=== PATIENT | male | born 1965 | race Caucasian/White ===

== ENCOUNTER 2018-11-20 04:49 | Observation (INO) ==
[2018-11-20] MEDS ORDERED: 0.9 % SODIUM CHLORIDE 1,000 ML IV ONE (05:02)
--- NOTE | 2018-11-20 05:08 | Emergency Department Note ---
Abdominal Pain HPI - General Chief Complaint: Abdominal Pain Stated Complaint: Thinking having gallbladder attack Time Seen by Provider: 11/20/18 04:58 Source: patient Mode of arrival: ambulatory Limitations: no limitations - History of Present Illness HPI Narrative: 53-year-old male with known cholelithiasis and cholecystitis who is already seen Dr. Strong, general surgeon, for this on 11/12/2018 comes in for right upper quadrant pain that woke him up tonight. Rates pain is 7 out of 10. Hydrocodone did not help much. He was going to schedule with Dr. Strong to get his gallbladder taken out but had not done it yet - Related Data Home Medications Medication Instructions Recorded Confirmed esomeprazole magnesium 20 mg 20 mg PO QDAY PRN 02/19/18 11/12/18 tablet,delayed release Previous Rx's Medication Instructions Recorded methocarbamol 750 mg tablet 750 mg PO Q6H PRN #60 tab 09/19/17 atorvastatin 40 mg tablet 40 mg PO QDAY #90 tab 02/19/18 fluticasone propionate 50 1 spray INTRANASAL BID #16 g 02/19/18 mcg/actuation nasal spray,suspension ketoconazole 2 % shampoo 1 applic TOPICAL 3XW #120 ml 02/19/18 albuterol sulfate HFA 90 90 mcg INHALATION Q6H PRN #18 g 03/29/18 mcg/actuation aerosol inhaler tamsulosin 0.4 mg capsule 0.4 mg PO QDAY #90 cap 04/24/18 levofloxacin 750 mg tablet 750 mg PO QDAY #7 tab 05/31/18 losartan 100 mg tablet 100 mg PO QDAY #30 tab 05/31/18 mometasone-formoterol HFA 100 2 puff INHALATION BID #13 g 05/31/18 mcg-5 mcg/actuation aerosol inhaler prednisone 5 mg tablet See Rx Instructions PO QAM #45 tab 05/31/18 promethazine 6.25 mg-codeine 10 5 ml PO Q6H PRN #118 ml 05/31/18 mg/5 mL syrup tramadol 50 mg tablet 50 mg PO Q6H #120 tab 05/31/18 HYDROcodone/APAP 5/325MG [[place] 1 tab PO Q6HP PRN #15 tab 11/04/18 5-325Mg] Allergies Allergy/AdvReac Type Severity Reaction Status Date / Time lisinopril Allergy Unknown Congested Verified 11/12/18 08:32 Review of Systems All systems ED: reviewed and negative except as stated. Abdominal Pain PMH - Past Medical History Attestation: Yes: The following information was validated with the patient. [facility] Narrative: Family History (Last Reviewed 11/12/18 @ 08:35 by Sara Gómez CMA) Mother Depression Medical History (Last Reviewed 11/12/18 @ 08:35 by Sara Gómez CMA) Fracture, carpal bone (Acute) Chronic kidney disease, stage III (moderate) (Chronic) Hypertensive renal disease (Chronic) Diverticulosis of intestine (Chronic) Obesity (Chronic) Hyperkalemia (Chronic) Hypertension (Chronic) Chronic kidney disease, stage III (moderate) (Chronic) White coat hypertension (Chronic) Tinea versicolor (Chronic) Shoulder pain (Chronic) Lumbar disc disorder (Chronic) Insulin resistance syndrome (Chronic) Hyperlipidemia (Chronic) Hemochromatosis (Chronic) Diverticulitis (Chronic) Depression (Chronic) Nocturia associated with benign prostatic hypertrophy (Chronic) Asthma (Chronic) Anxiety disorder (Chronic) Allergic rhinitis (Chronic) Abnormal electrocardiogram (Chronic) Abdominal pain (Resolved) Aspiration pneumonia (Resolved) Hemoptysis (Resolved) Palpitations (Resolved) Skin lesion of left lower extremity (Resolved) Past Surgical History (Last Reviewed 11/12/18 @ 08:35 by Sara Gómez CMA) H/O colonoscopy (Chronic 07/28/15) History of cystoscopy (Chronic 10/01/15) Status post laparoscopic-assisted sigmoidectomy (Chronic 10/01/15) History of appendectomy (Resolved) History of inguinal hernia repair (Resolved) History of repair of left rotator cuff (Resolved) History of vasectomy (Resolved) Medical history: Reports: atrial fibrillation (Diverticulitis, asthma, BPH,), hypertension, other - Social History Smoking status: Former smoker Alcohol use: Reports: Occasionally Drug use: Reports: none Physical Exam Some distress secondary to pain. Normocephalic atraumatic. Conjunctive are clear sclerae nonicteric. No nasal discharge or congestion. Oropharynx pink and moist. Neck supple without lymphadenopathy or thyromegaly. Heart is regular rate and rhythm no murmur appreciated. Lungs are clear to auscultation bilaterally without wheezes rales rhonchi or respiratory distress. Abdomen is soft tender in the right upper quadrant with some guarding-Matta sign positive. Alert oriented Limitations: no limitations Course Vital Signs Temperature 97.0 F 11/20/18 04:49 Pulse Rate 83 11/20/18 04:49 Respiratory Rate 18 11/20/18 04:49 Blood Pressure 176/129 11/20/18 04:49 Pulse Oximetry (%) 100 11/20/18 04:49 Temperature 97.0 F 11/20/18 04:49 Pulse Rate 60 11/20/18 06:01 Respiratory Rate 18 11/20/18 04:49 Blood Pressure 146/99 11/20/18 06:01 Pulse Oximetry (%) 97 11/20/18 06:01 Abdominal Pain - MDM Narrative Medical decision making narrative: Reviewed Dr. Juan Strong's note from his clinic on 11/12/2018 - Lab Data Lab results reviewed: Yes I reviewed the patient's lab results. Result diagrams: 11/20/18 05:10 11/20/18 05:10 Lab Results 11/20/18 11/20/18 Range/Units 05:10 05:10 WBC 7.6 (4.5-11.0) K/mcL RBC 4.94 (4.50-5.90) M/mcL Hgb 14.8 (13.5-16.5) g/dL Hct 44.9 (41.0-55.0) % MCV 90.9 (80.0-100.0) fL MCH 30.0 (26.0-34.0) pg MCHC 33.0 (31.0-36.0) g/dL RDW 13.4 (11.5-14.5) % Plt Count 171 (140-440) K/mcL MPV 9.9 (7.4-10.4) fL Gran % 50.0 (38.0-78.0) % Lymph % (Auto) 37.5 (15.5-49.0) % [place] % (Auto) 9.4 (1.0-12.0) % Eos % (Auto) 2.6 (0.0-7.0) % Baso % (Auto) 0.5 (0.0-2.0) % Gran # 3.8 (1.8-8.0) K/mcL Lymph # (Auto) 2.9 (1.5-4.8) K/mcL [place] # (Auto) 0.7 (0.1-0.9) K/mcL Eos # (Auto) 0.2 (0.0-0.7) K/mcL Baso # (Auto) 0 (0.0-0.3) K/mcL Sodium 143 (133-145) mmol/L Potassium 4.3 (3.3-5.1) mmol/L Chloride 107 (96-108) mmol/L Carbon Dioxide 25 (22-30) mmol/L Anion Gap 11.0 (8-16) BUN 24 H (6-20) mg/dl Creatinine 1.4 H (0.7-1.2) mg/dl GFR Calculation 56 Glucose 97 (70-105) mg/dL Calcium 9.3 (8.6-10.4) mg/dl Total Bilirubin 0.3 (0.0-1.0) mg/dL AST 21 (0-37) U/l ALT 33 (0-40) U/l Alkaline Phosphatase 94 (39-117) U/L Total Protein 6.8 (5.9-8.4) gm/dL Albumin 4.5 (3.2-5.2) gm/dL Globulin 2.3 (2.2-3.7) gm/dL Albumin/Globulin Ratio 2.0 (1.0-2.3) Amylase 133 H (28-100) U/L Lipase 214 H (7-60) U/L Disposition Pt seen by DIGITAL ASSOCIATE MEDIA DIRECTOR/PA only: No Clinical Impression: Cholecystitis with cholelithiasis Qualifiers: Cholelithiasis location: gallbladder Cholecystitis acuity: acute Biliary obstruction: without biliary obstruction Qualified Code(s): K80.00 - Calculus of gallbladder with acute cholecystitis without obstruction Pancreatitis Qualifiers: Chronicity: acute Pancreatitis type: biliary Acute pancreatitis complication: unspecified Qualified Code(s): K85.10 - Biliary acute pancreatitis without necrosis or infection Summary: Ordered laboratory IV fluids pain medicine and nausea medicine Laboratory shows mild pancreatitis. I discussed the situation with Dr. Juan Strong, general surgeon who agreed to accept the patient for further care and evaluation in the hospital. Plan is to take out his gallbladder tomorrow but he would like to let his pancreas have a chance to cool off first. I will write ho lding orders with pain management nausea medicine and IV fluids Disposition: Xfer As Inpt ([facility]) Condition: Fair Referrals: Camille Conte, MICHELINE, [employer] OPERATOR [Primary Care Provider] - Juan Strong MD [Physician] -
[2018-11-20] MEDS ORDERED: ONDANSETRON 4 MG/2 ML VIAL IV ONE (05:09)
[2018-11-20] MEDS: HYDROmorphone 2 MG/ML VIAL IV PRN ×2 (05:14→05:33)
[2018-11-20 05:45] LABS: Basophils # (Auto) 0 K/mcL (0.0-0.3); Basophils % (Auto) 0.5 % (0.0-2.0); Eosinophils # (Auto) 0.2 K/mcL (0.0-0.7); Eosinophils % (Auto) 2.6 % (0.0-7.0); Lymphocytes # (Auto) 2.9 K/mcL (1.5-4.8); Lymphocytes % (Auto) 37.5 % (15.5-49.0); Mean Cell Volume 90.9 fL (80.0-100.0); Monocytes # (Auto) 0.7 K/mcL (0.1-0.9); Monocytes % (Auto) 9.4 % (1.0-12.0); Platelet Count 171 K/mcL (140-440); RBC 4.94 M/mcL (4.50-5.90); Red Cell Distribution Width 13.4 % (11.5-14.5)
[2018-11-20 06:04] LABS: ALT/SGPT 33 U/l (0-40); Albumin 4.5 gm/dL (3.2-5.2); Alkaline Phosphatase 94 U/L (39-117); Amylase 133 U/L (28-100); Blood Urea Nitrogen 24 mg/dl (6-20); Lipase 214 U/L (7-60)
[2018-11-20] MEDS ORDERED: ONDANSETRON 4 MG/2 ML VIAL IV PRN (06:22)
[2018-11-20] MEDS ORDERED: NALOXONE HCL 0.4 MG/ML VIAL IV PRN (06:22)
[2018-11-20] MEDS ORDERED: PROMETHAZINE 25 MG/ML VIAL IV PRN (08:29)
[2018-11-20] MEDS ORDERED: cefTRIAXone 1 GM VIAL IV SCH (09:00)
[2018-11-20] MEDS: 0.9 % SODIUM CHLORIDE 1,000 ML IV SCH ×4 (09:21→21:09)
[2018-11-20] MEDS ORDERED: ALBUTEROL SULFATE 1 PUFF INHALER INH PRN (10:37)
[2018-11-20] MEDS ORDERED: diphenhydrAMINE 50 MG/ML VIAL IV ONE (11:28)
--- NOTE | 2018-11-20 12:31 | General Surg History&Physical ---
History of Present Illness Patient information: Note initiated : 11/20/18 at 12:28 pm Service Date, if different from initiated Date: [] Patient: Jordin Figueroa 53 y/o M admitted on 11/20/18 for Thinks He's Having Gallbladder Attack. Chief Complaint: [] HPI: Mr. Figueroa is a 53 year old M admitted with suspected biliary pancreatitis. The patient has known cholelithiasis and chronic cholecystitis. He was seen in the emergency room on 04 November with complaints of severe epigastric pain. He was noted to have small gallstones and thickened gallbladder wall. He was informed on that date that he needed to proceed with cholecystectomy. The patient wished to wait to have the surgery done. He has about a 24-hour history of abdominal pain with nausea but no vomiting. He was seen in the emergency room and was noted to have elevated amylase and lipase. He is admitted and we'll be observed until his amylase and lipase shows downward trending up. He will then be scheduled for cholecystectomy. Review of Systems - Constitutional no chills, no fatigue, no malaise, no weight loss - EENT Nose, mouth and throat: no abnormal hearing, no dysphagia, no throat swelling - Cardiovascular no dyspnea on exertion, no palpatations, no pedal edema, no rapid heart rate - Respiratory no dyspnea on exertion, no wheezing, no chest congestion - Gastrointestinal abdominal pain, bloating, cramping, heartburn, nausea, vomiting - Genitourinary nocturia, no dysuria - Musculoskeletal no arthralgias, no joint swelling, no numbness, no stiffness - Integumentary no new lesions, no pruritus, no rash - Neurological no abnormal hearing, no confusion, no dizziness, no headache(s), no numbness, no syncope - Psychiatric no anxiety, no depression - Endocrine no fatigue - Hematologic/Lymphatic no easy bleeding, no easy bruising, no lymphadenopathy - Allergic/Immunologic no tongue swelling, no throat swelling, no uticaria, no wheezing, no lip swelling Past History Past medical history: Chronic kidney disease stage III. Hypertension, . Lumbar disc disease. Hemochromatosis. Chronic depression. Chronic anxiety Past surgical history: Laparoscopic sigmoid resection. Appendectomy. Left inguinal hernia repair Left rotator cuff repair. Vasectomy Past family history: Chronic depression Past social history: Employment Former smoker. Occasional alcohol use. Marijuana use Medications and Allergies Home Medications Medication Instructions Recorded Confirmed Type methocarbamol 750 mg tablet 750 mg PO Q6H PRN #60 tab 09/19/17 11/20/18 Rx atorvastatin 40 mg tablet 40 mg PO QDAY #90 tab 02/19/18 11/20/18 Rx fluticasone propionate 50 1 spray INTRANASAL BID #16 g 02/19/18 11/20/18 Rx mcg/actuation nasal spray,suspension albuterol sulfate HFA 90 90 mcg INHALATION Q6H PRN #18 g 03/29/18 11/20/18 Rx mcg/actuation aerosol inhaler tamsulosin 0.4 mg capsule 0.4 mg PO QDAY #90 cap 04/24/18 11/20/18 Rx losartan 100 mg tablet 100 mg PO QDAY #30 tab 05/31/18 11/20/18 Rx prednisone 5 mg tablet See Rx Instructions PO QAM #45 tab 05/31/18 11/20/18 Rx promethazine 6.25 mg-codeine 10 5 ml PO Q6H PRN #118 ml 05/31/18 11/20/18 Rx mg/5 mL syrup tramadol 50 mg tablet 50 mg PO Q6H #120 tab 05/31/18 11/20/18 Rx HYDROcodone/APAP 5/325MG [[place] 1 tab PO Q6HP PRN #15 tab 11/04/18 11/20/18 Rx 5-325Mg] Allergies Allergy/AdvReac Type Severity Reaction Status Date / Time lisinopril Allergy Severe Congested Verified 11/20/18 08:16 Exam Temp Pulse Resp BP Pulse Ox 96.9 F L 55 L 18 163/100 97 11/20/18 08:00 11/20/18 08:00 11/20/18 08:00 11/20/18 08:00 11/20/18 08:00 - General physical appearance well developed, well nourished, no distress - Eyes PERRL, normal ocular movement. negative: icteric - ENT normal pinna, normal nares, normal mucosa, no hearing loss, no congestion - Head Head exam IM: Present: atraumatic, normal inspection, normocephalic - Neck no masses, no bruits, trachea midline, no lymphadenopathy, no venous distension - Cardiovascular Cardiovascular exam IM: Present: normal rate and rhythm - Respiratory normal expansion, normal respiratory effort, clear to auscultation - Abdomen Abdomen: Present: soft, non tender, bowel sounds, distended (moderate distention but no palpable tenderness at this time) Hernia: Present: none - Genitourinary Present: normal penis with no external lesions - Integumentary Present: no rash, no growths, no abnormal pigmentation - Neurologic Present: normal coordination, normal sensation - Musculoskeletal Present: normal gait, normal posture - Psychiatric Present: oriented to time, oriented to person, oriented to place, speech is normal, memory intact Assessment and Plan (1) Acute biliary pancreatitis without infection or necrosis Clear liquid diet. Check amylase and lipase in the morning. Check LFTs in the morning Status: Acute (2) Cholelithiasis and cholecystitis without obstruction Schedule for laparoscopic cholecystectomy; to be performed tomorrow Status: Acute (3) Chronic kidney disease, stage III (moderate) IV hydration with normal saline Status: Chronic (4) Hypertension Hold the medication until blood pressure starts to rise Status: Chronic Comment: Patient has had elevated BP readings has not been able to keep a BP log Given his age would try and aim for 130/80 or less of BP Advised to reduce sodium intake will obtain ambulatory BP monitoring will follow and start on meds if needed Qualifiers: Hypertension type: essential hypertension Qualified Code(s): I10 - Essential (primary) hypertension (5) Anxiety disorder Status: Chronic Comment: Uses medicinal cannabis for control of this; one hit three times a day Qualifiers: Anxiety disorder type: generalized anxiety disorder Qualified Code(s): F41.1 - Generalized anxiety disorder
--- NOTE | 2018-11-20 13:45 | XRay Report ---
HISTORY: Preop FINDINGS: The lungs are clear. The heart, mediastinum, ilana and pleura are normal. IMPRESSION: Normal chest. Interpreted and Authenticated by: Butch Reyes 11/20/18
[2018-11-20] MEDS: LEVOFLOXACIN 750 MG/150 ML BAG IV SCH (14:28)
[2018-11-20] MEDS ORDERED: LOSARTAN 50 MG TABLET PO ONE (16:02)
[2018-11-20] MEDS: HYDROcodone/APAP 5/325MG TABLET PO PRN (16:16)
[2018-11-20] MEDS: PANTOPRAZOLE 40 MG VIAL IV SCH (17:55)
[2018-11-20] MEDS: FLUTICASONE PROPIONATE SPRAY.NAS NS SCH (21:08)
[2018-11-21] MEDS: 0.9 % SODIUM CHLORIDE 1,000 ML IV SCH ×3 (02:39→18:17)
[2018-11-21] MEDS ORDERED: SCOPOLAMINE 1 PATCH PATCH TOPICAL PRN (05:00)
[2018-11-21] MEDS ORDERED: IPRATROPIUM/ALBUTEROL 3 ML AMPUL.NEB NEB PRN ×2 (05:00→08:11)
[2018-11-21] MEDS: LOSARTAN 50 MG TABLET PO SCH ×2 (05:17→11:15)
[2018-11-21 06:09] LABS: ALT/SGPT 28 U/l (0-40); Albumin 3.9 gm/dL (3.2-5.2); Albumin/Globulin Ratio 1.8 (1.0-2.3); Alkaline Phosphatase 80 U/L (39-117); Bilirubin,Direct < 0.2 mg/dL (0.0-0.3); Blood Urea Nitrogen 16 mg/dl (6-20); Gamma Glutamyl Transpeptidase 97 U/L (8-61); Uric Acid 5.4 mg/dL (2.5-8.0)
[2018-11-21 06:15] LABS: Basophils # (Auto) 0 K/mcL (0.0-0.3); Basophils % (Auto) 0.5 % (0.0-2.0); Eosinophils # (Auto) 0.1 K/mcL (0.0-0.7); Eosinophils % (Auto) 1.8 % (0.0-7.0); Granulocytes % (Auto) 55.4 % (38.0-78.0); Lymphocytes # (Auto) 2.6 K/mcL (1.5-4.8); Lymphocytes % (Auto) 32.6 % (15.5-49.0); Mean Cell Volume 90.3 fL (80.0-100.0); Mean Corpuscular HGB Conc 33.2 g/dL (31.0-36.0); Monocytes # (Auto) 0.8 K/mcL (0.1-0.9); Monocytes % (Auto) 9.7 % (1.0-12.0); Platelet Count 141 K/mcL (140-440); RBC 4.59 M/mcL (4.50-5.90); Red Cell Distribution Width 14.1 % (11.5-14.5)
[2018-11-21] MEDS ORDERED: SUGAMMADEX SODIUM 200 MG/2 ML VIAL IV ONE (07:35)
[2018-11-21] MEDS ORDERED: fentaNYL 250 MCG/5 ML VIAL IV ONE (07:35)
[2018-11-21] MEDS ORDERED: PROPOFOL 200 MG/20 ML VIAL IV ONE (07:35)
[2018-11-21] MEDS ORDERED: ROCURONIUM 10 MG/ML ML IV ONE (07:35)
[2018-11-21] MEDS ORDERED: ONDANSETRON 4 MG/2 ML VIAL IV ONE (07:35)
[2018-11-21] MEDS ORDERED: MIDAZOLAM 5 MG/5 ML VIAL IV ONE (07:35)
[2018-11-21] MEDS ORDERED: LIDOCAINE HCL/PF 100 MG/5 ML SYRINGE IV ONE (07:35)
[2018-11-21] MEDS ORDERED: DEXAMETHASONE 10 MG/ML VIAL IV ONE (07:35)
[2018-11-21] MEDS ORDERED: MEPERIDINE 25 MG/ML SYRINGE IV PRN (08:11)
[2018-11-21] MEDS ORDERED: BENZOCAINE/MENTHOL 1 LOZENGE PO PRN (08:11)
[2018-11-21] MEDS ORDERED: FLUMAZENIL 0.1 MG/ML ML IV PRN (08:11)
[2018-11-21] MEDS ORDERED: LACTATED RINGERS 250 ML IV PRN (08:11)
[2018-11-21] MEDS ORDERED: ONDANSETRON 4 MG/2 ML VIAL IV PRN (08:11)
[2018-11-21] MEDS ORDERED: diphenhydrAMINE 50 MG/ML VIAL IV PRN (08:11)
[2018-11-21] MEDS ORDERED: NALOXONE HCL 0.4 MG/ML VIAL IV PRN (08:11)
[2018-11-21] MEDS ORDERED: PROMETHAZINE 25 MG/ML VIAL IV PRN (08:11)
[2018-11-21] MEDS ORDERED: ACETAMINOPHEN 1,000 MG/100 ML BOTTLE IV ONE (08:11)
[2018-11-21] MEDS ORDERED: HYDROmorphone 2 MG/ML VIAL IV PRN ×3 (08:11→09:50)
[2018-11-21] MEDS ORDERED: LACTATED RINGERS 1,000 ML IV SCH (08:15)
[2018-11-21] MEDS: PANTOPRAZOLE 40 MG VIAL IV SCH ×2 (08:23→16:24)
--- NOTE | 2018-11-21 08:36 | Brief Operative Note ---
Date of procedure: 11/21/18 Pre-op diagnosis: biliary pancreatitis;cholecystitis Post-op diagnosis: other (biliary pancreatitis;cholecystitiis) Procedure: laparoscopic cholecystectomy Grafts/Implants: No Anesthesia: GETA Findings: dilated edematous gallbladder Complications: none Surgeon: Shine Strong Estimated blood loss (cc): 20 Specimens Removed/Pathology: other (gallbladder) Condition: stable Disposition: PACU
[2018-11-21] MEDS ORDERED: METHOCARBAMOL 750 MG TABLET PO PRN (08:42)
[2018-11-21] MEDS: hydrALAZINE 20 MG/ML VIAL IV ONE ×2 (08:45→10:48)
[2018-11-21] MEDS: fentaNYL 100 MCG/2 ML VIAL IV PRN ×4 (08:53→09:01)
[2018-11-21] MEDS ORDERED: LOSARTAN 50 MG TABLET PO SCH (09:00)
[2018-11-21] MEDS: HYDROmorphone 2 MG/ML VIAL IV PRN ×4 (09:06→17:26)
[2018-11-21] MEDS ORDERED: PROMETHAZINE 25 MG/ML VIAL IV ONE (10:10)
[2018-11-21] MEDS ORDERED: diphenhydrAMINE 50 MG/ML VIAL IV ONE (10:11)
[2018-11-21] MEDS: TAMSULOSIN 0.4 MG CAPSULE PO SCH (11:30)
[2018-11-21] MEDS: LEVOFLOXACIN 750 MG/150 ML BAG IV SCH (11:30)
[2018-11-21] MEDS: FLUTICASONE PROPIONATE SPRAY.NAS NS SCH ×2 (11:54→21:24)
--- NOTE | 2018-11-21 13:02 | Operative Note ---
DATE OF OPERATION: 11/21/2018 PREOPERATIVE DIAGNOSES: Biliary pancreatitis and cholelithiasis with cholecystitis. POSTOPERATIVE DIAGNOSES: Biliary pancreatitis, cholelithiasis with cholecystitis. PROCEDURE: Laparoscopic cholecystectomy. SURGEON: Shine Strong MD FINDINGS: Dilated edematous gallbladder. DESCRIPTION OF PROCEDURE: Under general anesthesia, the patient's abdomen was prepped and draped in a sterile field. A time-out procedure was carried out as per protocol. Supraumbilical incision was made and Veress needle inserted uneventfully. Abdomen was insufflated with 2.4 liters of CO2. A 12 mm port was placed. Laparoscope was placed. A potentially engorged dilated gallbladder was encountered. Under videoscopic guidance, a 12 mm port and two 5 ports were placed in right subcostal region. The gallbladder was decompressed with a Weck needle. It was then grasped in position. The infundibulum of the gallbladder was carried out with full identification of the cystic duct and the cystic artery. The cystic duct was enlarged. It was totally dissected and followed back to the gallbladder. It was transected using an Endo-BELLE stapler. Cystic artery was clipped with 4 clips and divided at the wall of the gallbladder. The gallbladder was then from the infrahepatic bed using electrocautery. It was placed in an Endopouch and retrieved. Hemostasis was achieved. A small piece of Surgicel was placed in the bed where there was some oozing. This was controlled with Surgicel. More irrigation was carried out and no further bleeding noted. Air was allowed to escape from the abdomen and the ports were removed. Fascia at umbilicus was closed with 0 Vicryl. Skin incisions were closed with simi. Tegaderm dressings were placed. The patient tolerated the procedure well. He was awakened, transferred to a bed and taken to the postanesthetic care unit in satisfactory condition. LCS:alfonso Job ID: [id number] Doc ID: [id number] Shine Strong M.D.
[2018-11-21] MEDS: HYDROcodone/APAP 5/325MG TABLET PO PRN ×2 (14:15→21:23)
[2018-11-21] MEDS ORDERED: ACETAMINOPHEN 1,000 MG/100 ML BOTTLE IV PRN (15:00)
[2018-11-22] MEDS: 0.9 % SODIUM CHLORIDE 1,000 ML IV SCH ×2 (00:29→08:38)
[2018-11-22 06:34] LABS: Basophils # (Auto) 0 K/mcL (0.0-0.3); Basophils % (Auto) 0.3 % (0.0-2.0); Eosinophils # (Auto) 0 K/mcL (0.0-0.7); Eosinophils % (Auto) 0 % (0.0-7.0); Granulocytes % (Auto) 78.4 % (38.0-78.0); Lymphocytes # (Auto) 1.8 K/mcL (1.5-4.8); Lymphocytes % (Auto) 14.3 % (15.5-49.0); Mean Corpuscular HGB Conc 32.9 g/dL (31.0-36.0); Monocytes # (Auto) 0.9 K/mcL (0.1-0.9); Platelet Count 157 K/mcL (140-440); RBC 4.25 M/mcL (4.50-5.90); Red Cell Distribution Width 13.9 % (11.5-14.5)
[2018-11-22 06:56] LABS: ALT/SGPT 37 U/l (0-40); Alkaline Phosphatase 73 U/L (39-117); Bilirubin,Direct < 0.2 mg/dL (0.0-0.3); Blood Urea Nitrogen 15 mg/dl (6-20); Gamma Glutamyl Transpeptidase 84 U/L (8-61); Uric Acid 4.7 mg/dL (2.5-8.0)
[2018-11-22] MEDS: PANTOPRAZOLE 40 MG VIAL IV SCH (07:34)
[2018-11-22] MEDS: HYDROcodone/APAP 5/325MG TABLET PO PRN ×2 (07:34→11:55)
[2018-11-22] MEDS: LEVOFLOXACIN 750 MG/150 ML BAG IV SCH (08:45)
[2018-11-22] MEDS: LOSARTAN 50 MG TABLET PO SCH (08:45)
[2018-11-22] MEDS: TAMSULOSIN 0.4 MG CAPSULE PO SCH (08:45)
[2018-11-22] MEDS: FLUTICASONE PROPIONATE SPRAY.NAS NS SCH (08:51)
--- NOTE | 2018-11-22 11:47 | General Surgery Progress Note ---
Subjective Patient reports: feels better, pain is less, tolerating a regular diet, flatus, bowel movement, afebrile Narrative: Note initiated : 11/22/18 at 11:45 am Service Date, if different from initiated Date: [] Patient: Jordin Figueroa 53 y/o M admitted on 11/20/18 for Thinks He's Having Gallbladder Attack. Chief Complaint: [patient is doing well. He has good control of his pain. He is tolerating oral analgesics without difficulty. He has eaten a regular diet. He denies nausea, vomiting. He's had a regular bowel movement. Patient is stable for discharge.] Objective Temp Pulse Resp BP Pulse Ox 98.4 F 76 16 160/90 98 11/22/18 08:00 11/22/18 08:00 11/22/18 08:00 11/22/18 08:00 11/22/18 08:00 - Additional Data Intake & Output - Last 24 hours: Intake & Output 11/20/18 11/21/18 11/22/18 11/23/18 05:59 05:59 05:59 05:59 Intake Total 4920 5590 2230 Output Total 2300 4150 Balance 2620 1440 2230 Weight 230 lb 237 lb 234 lb 14.4 oz - General physical appearance well developed, well nourished, no distress - Eyes PERRL, normal ocular movement - ENT normal pinna, normal nares, normal mucosa, no hearing loss, no congestion - Neck no masses, no bruits, trachea midline, no lymphadenopathy, no venous distension - Respiratory normal expansion, normal respiratory effort, clear to auscultation - Cardiovascular Cardiovascular exam: Present: normal rate and rhythm, RRR, +S1, +S2. Absent: JVD, tachycardia - Abdomen soft, tender (mild tenderness around port sites. Otherwise unremarkable abdominal exam) - Integumentary no rash, no growths, no abnormal pigmentation - Neurologic normal coordination, normal sensation - Musculoskeletal normal gait, normal posture - Psychiatric oriented to time, oriented to person, oriented to place, speech is normal, memory intact - Labs 11/22/18 04:15 11/22/18 04:15 Diabetes panel 11/22/18 Range/Units 04:15 Sodium 144 (133-145) mmol/L Potassium 4.0 (3.3-5.1) mmol/L Chloride 110 H (96-108) mmol/L Carbon Dioxide 22 (22-30) mmol/L BUN 15 (6-20) mg/dl Creatinine 1.3 H (0.7-1.2) mg/dl Glucose 102 (70-105) mg/dL Calcium 8.5 L (8.6-10.4) mg/dl AST 24 (0-37) U/l ALT 37 (0-40) U/l Alkaline Phosphatase 73 (39-117) U/L Total Protein 6.0 (5.9-8.4) gm/dL Albumin 4.0 (3.2-5.2) gm/dL Triglycerides 96 (<150) mg/dl Calcium panel 11/22/18 Range/Units 04:15 Calcium 8.5 L (8.6-10.4) mg/dl Phosphorus 2.7 (2.7-4.5) mg/dL Albumin 4.0 (3.2-5.2) gm/dL Pituitary panel 11/22/18 Range/Units 04:15 Sodium 144 (133-145) mmol/L Potassium 4.0 (3.3-5.1) mmol/L Chloride 110 H (96-108) mmol/L Carbon Dioxide 22 (22-30) mmol/L BUN 15 (6-20) mg/dl Creatinine 1.3 H (0.7-1.2) mg/dl Glucose 102 (70-105) mg/dL Calcium 8.5 L (8.6-10.4) mg/dl Adrenal panel 11/22/18 Range/Units 04:15 Sodium 144 (133-145) mmol/L Potassium 4.0 (3.3-5.1) mmol/L Chloride 110 H (96-108) mmol/L Carbon Dioxide 22 (22-30) mmol/L BUN 15 (6-20) mg/dl Creatinine 1.3 H (0.7-1.2) mg/dl Glucose 102 (70-105) mg/dL Calcium 8.5 L (8.6-10.4) mg/dl Total Bilirubin 0.6 (0.0-1.0) mg/dL AST 24 (0-37) U/l ALT 37 (0-40) U/l Alkaline Phosphatase 73 (39-117) U/L Total Protein 6.0 (5.9-8.4) gm/dL Albumin 4.0 (3.2-5.2) gm/dL Assessment and Plan (1) Acute biliary pancreatitis without infection or necrosis Status: Resolved Assessment and plan: Patient is stable for discharge home Current Visit: Yes (2) Cholelithiasis and cholecystitis without obstruction Status: Resolved Current Visit: Yes (3) Chronic kidney disease, stage III (moderate) Status: Chronic Current Visit: No (4) Hypertension Problem details: Patient has had elevated BP readings has not been able to keep a BP log Given his age would try and aim for 130/80 or less of BP Advised to reduce sodium intake will obtain ambulatory BP monitoring will follow and start on meds if needed Status: Chronic Current Visit: No (5) Anxiety disorder Problem details: Uses medicinal cannabis for control of this; one hit three times a day Status: Chronic Current Visit: No - Time Spent With Patient Total time spent is greater than 50% in coordination of care (as documented) at patient's floor/unit and/or counseling patient:
--- NOTE | 2018-11-22 13:35 | Surgical Pathology Report ---
HISTOLOGY SPECIMEN MICROSCOPIC DIAGNOSIS GALLBLADDER, CHOLECYSTECTOMY: -- ACUTE AND CHRONIC CHOLECYSTITIS. -- CHOLELITHIASIS. (DMT:sln) PROCEDURAL IMPRESSION Cholelithiasis; acute cholecystitis. GROSS DESCRIPTION Received in formalin labeled gallbladder, is an 8.5 x 4.0 x 2.8 cm pink to green-gore gallbladder. The serosal surface is smooth and glistening. The cystic duct has been stapled closed. The lumen contains viscous yellow-green fluid and multiple rough surfaced black stone fragments ranging in size from less than 0.1 to 0.2 cm in greatest dimension. The mucosa is pink to green-gore and velvety. The wall is up to 0.4 cm thick. No gross lesions are identified. Plan Nurse sections submitted - one cassette. (STS:mariam) Electronically Signed by: Alexei Muñoz M.D.
== END 2018-11-22 12:15 | disposition home or self-care (01) ==
LOC: MEDSUR 04:49 → ED 04:49 → MEDSUR 07:05
PROVIDERS: ADMIT Family Medicine Adult Medicine; ATTEND Family Medicine Adult Medicine